=== PATIENT | male | born 1955 ===

== ENCOUNTER 2024-04-04 04:35 | Emergency (ER) | payer MEDICARE, BC ==
[2024-04-04] MEDS: Sodium Chloride 0.9% 1,000 ML IV SCH (04:49)
[2024-04-04] MEDS: Norepinephrine Bit/0.9 % NaCl 4 MG in Premix Bag 1 BAG IV SCH (04:57)
[2024-04-04] MEDS: Etomidate 2 MG/ML 10 ML SDV IVPUSH ONE (04:58)
[2024-04-04] MEDS: Succinylcholine 200 MG/10 ML MDV IV ONE (04:59)
[2024-04-04] MEDS ORDERED: Norepinephrine Bit/D5W Premix 250 ML IV SCH ×2 (05:00→08:00)
[2024-04-04] MEDS: Phenylephrine 1% 10 MG/ML SDV IV ONE (05:10)
[2024-04-04] MEDS: Midazolam 1 MG/ML 2 ML SDV IVPUSH ONE ×3 (05:13→06:09)
[2024-04-04] MEDS: Rocuronium 50 MG/5 ML Vial IVPUSH ONE ×3 (05:21→06:09)
[2024-04-04] MEDS: Albuterol/Ipratropium 3.0-0.5 MG/3 ML Neb Soln NEB ONE (05:25)
[2024-04-04 05:32] LABS: ALANINE AMINOTRANSFERASE,ALT 28 U/L (14-63); ALBUMIN 2.99 g/dL (3.40-5.00); ALKALINE PHOSPHATASE 55 U/L (46-116); ANION GAP 11.7 mmol/L (5-15); ASPARTATE AMNIOTRANSFERASE,AST 24 U/L (15-37); BASOPHILS ABSOLUTE AUTO 0.02 10^3/uL (0.00-0.10); BASOPHILS PERCENT AUTO 0.1 % (0.0-1.0); BILIRUBIN TOTAL 0.9 mg/dL (0.2-1.0); CALCIUM 8.9 mg/dL (8.7-10.3); CARBON DIOXIDE,CO2 42.1 mmol/L (21.0-32.0); CHLORIDE,CL 94 mmol/L (98-107); CREATININE 2.34 mg/dL (0.51-1.17); EOSINOPHILS ABSOLUTE AUTO 0.01 10^3/uL (0.10-0.30); GLUCOSE RANDOM 168 mg/dL (70-140); HEMATOCRIT 37.3 % (40.0-52.0); HEMOGLOBIN 10.9 g/dL (13.0-17.0); IMMATURE GRAN PERCENT AUTO 0.8 % (0.0-5.0); LYMPHOCYTES ABSOLUTE AUTO 0.42 10^3/uL (1.00-4.00); LYMPHOCYTES PERCENT AUTO 1.6 % (20.0-40.0); MEAN CORPUSCULAR HEMOGLOBIN 29.5 pg (27.0-31.0); MEAN CORPUSCULAR HGB CONC 29.2 g/dL (32.0-36.0); MEAN CORPUSCULAR VOLUME 101.1 fL (82.0-92.0); MEAN PLATELET VOLUME 10.8 fL (7.4-10.4); MONOCYTES ABSOLUTE AUTO 1.03 10^3/uL (0.10-0.80); MONOCYTES PERCENT AUTO 3.9 % (2.0-8.0); NEUTROPHILS ABSOLUTE AUTO 24.55 10^3/uL (2.50-7.00); NEUTROPHILS PERCENT AUTO 93.6 % (50.0-70.0); PLATELET COUNT,PLT 235 10^3/uL (150-400); POTASSIUM,K 4.8 mmol/L (3.5-5.1); PROTEIN TOTAL,TP 7.4 g/dL (6.4-8.2); RED BLOOD CELL COUNT 3.69 10^6/uL (4.50-6.00); RED CELL DISTRIBUTION WIDTH 17.6 % (11.5-14.5); SODIUM,NA 143 mmol/L (136-145); WHITE BLOOD CELL COUNT,WBC 26.23 10^3/uL (5.00-10.00)
[2024-04-04 05:33] LABS: BLOOD UREA NITROGEN,BUN 108 mg/dL (7-18); ESTIMATED GFR 29 mL/min (>=60)
[2024-04-04] MEDS: Water For Injection, Sterile 20 ML ONE (05:50)
[2024-04-04] MEDS: cefTRIAXone 2 GM Vial IVPUSH ONE (05:58)
[2024-04-04 06:08] LABS: O2 DELIVERY DEVICE RESUSCITATION BAG
[2024-04-04 06:09] LABS: BASE EXCESS ARTERIAL 26 mmol/L ((-2)-(+3)); BICARBONATE,ARTERIAL 51 mmol/L (21-28); O2 SATURATION ARTERIAL 99 %; PCO2 ARTERIAL 57 mmHG (35-48); PH,ARTERIAL 7.56 pH (7.35-7.45)
[2024-04-04 06:10] LABS: PO2 ARTERIAL 145 mmHG (83-108)
[2024-04-04] MEDS: Midazolam 1 MG/ML 2 ML SDV ONE ×2 (06:18→15:48)
== END 2024-04-04 07:15 ==
LOC: KA.ED 04:35
DX: J96.01 Acute respiratory failure with hypoxia (principal); J96.02 Acute respiratory failure with hypercapnia; J44.1 Chronic obstructive pulmonary disease with (acute) exacerbation; I50.9 Heart failure, unspecified; E66.9 Obesity, unspecified
CPT/HCPCS: 31500; 36415; 36600; 71045; 80053; 82803; 83605; 84484; 85025; 85379; 87040; 93005; 93010; 96365; 96366; 96368; 96375; 99285; 99291-25; J0330; J0696; J2250; J2371; J3490; J7030; J7620-GY; Q3014